=== PATIENT | female | born 1970 | race Two or more races ===

== ENCOUNTER 2020-12-09 09:52 | Emergency (ER) | payer SELFPAY ==
[~2020-12-09] VITALS: Ht 175.3 cm; Wt 75.7 kg
--- NOTE | 2020-12-09 10:08 | NUR ---
[id number] S/P SYNCOPE WHILE AT URGENT CARE.COUGH/FEVER LOSS SENSE TASTE/SMELL [id number] S/P SYNCOPE WHILE AT URGENT CARE.COUGH/FEVER LOSS SENSE TASTE/SMELL. THE PATIENT IS ALERT AND ORIENTED X4. DENIES PAIN. THE PATIENT IS ATTACHED TO THE MONITOR. SAFETY MEASURES TAKEN. WILL CONTINUE TO MONITOR THE PATIENT.
--- NOTE | 2020-12-09 10:28 | NUR ---
COVID SWAB DONE AND SENT TO THE LAB
[2020-12-09 10:30] LABS: BASOPHILS % (AUTO) 0.7 % (0.0-2.0); HEMATOCRIT 41 % (33-45); HEMOGLOBIN 13.8 g/dL (11.5-14.8); LYMPHOCYTES # (AUTO) 0.8 K/uL (0.8-4.8); LYMPHOCYTES % (AUTO) 19.2 % (20.0-44.0); MEAN CORPUSCULAR HGB CONC 33 g/dl (31.0-36.0); MEAN CORPUSCULAR VOLUME 98 fL (82-100); MONOCYTES # (AUTO) 0.2 K/uL (0.1-1.30); MONOCYTES % (AUTO) 4.5 % (2.0-12.0); NEUTROPHILS % (AUTO) 75.6 % (43.0-81.0); PLATELET COUNT (AUTO) 123 K/uL (150-450); RED BLOOD CELL COUNT(AUTO) 4.24 MIL/uL (4.0-5.2)
[2020-12-09] MEDS ORDERED: IV NS 0.9% 1,000 ML BAG IV ONE (10:30)
[2020-12-09 10:48] LABS: CALCIUM, SERUM 8.3 mg/dL (8.5-10.1); CARBON DIOXIDE 26 mmol/L (21-32); CHLORIDE 102 mmol/L (98-107); GLUCOSE 138 mg/dL (74-106); POTASSIUM 3.6 mmol/L (3.5-5.1); SODIUM SERUM 136 mmol/L (136-145); UREA NITROGEN, BLOOD 9 mg/dL (7-18)
[2020-12-09 10:55] LABS: ALANINE AMINOTRANSFERASE 34 U/L (12-78); ALBUMIN 3.5 g/dL (3.4-5.0); ALKALINE PHOSPHATASE 53 U/L (46-116); ASPARTATE AMINOTRANSFERASE 52 U/L (15-37); BILIRUBIN,DIRECT 0.1 mg/dL (0.0-0.2); BILIRUBIN,TOTAL 0.2 mg/dL (0.2-1.0); TOTAL PROTEIN, SERUM 7.1 g/dL (6.4-8.2)
[2020-12-09] MEDS ORDERED: BENZ-13 PO (12:23)
[2020-12-09 12:43] VITALS: BP 111/65
--- NOTE | 2020-12-09 12:43 | NUR ---
IV removed. Catheter intact and site benign. Pressure and 4x4 applied to site. No bleeding noted.Patient discharged to home in stable condition. Written and verbal after care instructions given. Patient verbalizes understanding of instruction.
--- NOTE | 2020-12-10 19:13 | NUR ---
UNABLE TO REACH THE PATIENT TO INFORM THAT SHE IS COVID POSITIVE. HOWEVER, UPON DISCHARGE I DID INFORM THE PATIENT SHE SHOULD CALL Saturday12/11/20 TO FIND OUT HER COVID RESULT AND SHE DID VERBALIZED UNDERSTANDING TO CALL [facility].
== END 2020-12-09 12:43 | disposition home or self-care (01) ==
LOC: ER 09:54
DX: U07.1 COVID-19 (principal); R55 Syncope and collapse
CPT/HCPCS: 36415; 71045; 80048; 80076; 84484; 85025; 85730; 93005; 96360; 99285; C9803; U0003